=== PATIENT | female | born 1950 | race Caucasian/White ===

== ENCOUNTER 2021-03-27 05:03 | Day surgery (SDC) | payer MEDICARE, OTHER, SELFPAY ==
[2021-03-27] VITALS (20 sets, daily range): BP systolic 131–207; BP diastolic 46–91; PULSE 69–92; RESP 15–19; TEMP 36.4–37.8; O2SAT 91–98; BMI 21.7
--- NOTE | ~2021-03-27 | FL_ITS ---
EXAMINATION: XR FLUOROSCOPY WITH IMAGES CLINICAL INFORMATION: Left kidney stone COMPARISON: CT 03/27/2020 TECHNIQUE: Fluoroscopy performed by Dr. Vaughn Linton. Fluoroscopy time: 169.3 seconds Images: 7 FINDINGS: Cysts noted with injection of contrast into the left ureter and collecting system. There is a ureteral stent placed. FL/FL guidance in OR IMPRESSION: Fluoroscopic guidance for left-sided pyelogram with ureteral stent placement. Please refer to procedural report for further information.
--- NOTE | ~2021-03-27 | CT_ITS ---
EXAMINATION: CT ABDOMEN AND PELVIS WITHOUT CONTRAST CLINICAL INFORMATION: Left flank pain COMPARISON: None TECHNIQUE: Multidetector volumetric imaging was performed from the superior aspect of the liver through the pubic symphysis. Sagittal and coronal reformatted images were obtained on the technologist's workstation. This CT examination was performed using dose optimization techniques as appropriate, variously including the following: *Automated exposure control *Adjustment of mA and/or kV according to patient size (this includes techniques or standardized protocols for targeted exams where dose is matched to indication/reason for exam; i.e. extremities or head) *Use of iterative reconstruction technique DLP: 471 mGy-cm FINDINGS: LUNG BASES: The visualized lung bases demonstrate dependent atelectasis. LIVER, GALLBLADDER, AND BILIARY TREE: The liver is normal in size, shape, and attenuation. There are 2 mildly hypoattenuating right hepatic lobe lesions measuring up to 1.3 cm, not cystic by CT criteria. No biliary ductal dilatation is present. The gallbladder is unremarkable with no evidence of radiopaque gallstones, gallbladder wall thickening, or obvious pericholecystic inflammatory changes. PANCREAS: Unremarkable. SPLEEN: Unremarkable. ADRENAL GLANDS: Unremarkable. KIDNEYS AND URETERS: There is a 4 mm calculus in the proximal left ureter with moderate hydronephrosis. There is prominent left-sided perinephric stranding and fluid. A few additional scattered tiny left renal calculi are noted. No significant right-sided hydronephrosis or obstructing calculus. BLADDER: Unremarkable. GASTROINTESTINAL TRACT: The small and large bowel are unremarkable. The appendix is unremarkable. No free air is seen. ABDOMINAL WALL: No significant hernia is appreciated. LYMPH NODES: No lymphadenopathy is seen, though assessment is limited in the absence of intravenous contrast. VASCULAR: There is atherosclerotic calcification along the aorta and iliac arteries. PELVIC VISCERA: Unremarkable. OSSEOUS STRUCTURES: Unremarkable. CT/CT abdomen pelvis wo con IMPRESSION: 1. Proximal left ureteral calculus measuring 4 mm with moderate hydronephrosis. Prominent left-sided perinephric stranding and fluid. 2. Few tiny left renal calculi. 3. Indeterminate right hepatic lobe lesions measuring up to 1.3 cm which would be better further assessed with dynamic liver MRI.
--- NOTE | 2021-03-27 04:46 | ECG_ITS ---
Test Reason : cp Blood Pressure : / mmHG Vent. Rate : 082 BPM Atrial Rate : 082 BPM P-R Int : 234 ms QRS Dur : 086 ms QT Int : 396 ms P-R-T Axes : 083 072 086 degrees QTc Int : 462 ms Sinus rhythm with 1st degree A-V block Otherwise normal ECG No previous ECGs available Referred By: Elaine Dawson Electronically Signed By:JOVANI BAEZA MD
--- NOTE | 2021-03-27 04:47 | ED_ITS ---
HPI - Abdominal Pain General Chief Complaint: Abdominal Pain Stated Complaint: FLANK/BACK PAIN Time Seen by Provider: 03/27/21 04:46 Source: patient and EMS Mode of arrival: EMS Limitations: no limitations History of Present Illness MD elicited complaint: abdominal pain and flank pain Pertinent past history: none Onset (ago): hour(s) (3.5) Pain Consistency: constant Location: L flank Severity: severe Quality: stabbing Radiation: LLQ Migration to: no migration Exacerbating factors: nothing Relieving factors: nothing Associated symptoms: nausea and vomiting Treatments prior to arrival: other (EMS gave 50mcg of fentanyl, 15 of Toradol, 4mg zofran) Related Data Home Medications Medication Instructions Recorded Confirmed No Known Home Meds 03/27/21 03/27/21 Allergies Allergy/AdvReac Type Severity Reaction Status Date / Time No Known Allergies Allergy Verified 03/27/21 04:46 Review of Systems Review of Systems Constitutional : No Weight loss, No Fever, No Chills ENT/Mouth : No sore throat, No Rhinorrhea Eyes: No Swelling, No Redness Cardiovascular : No Chest Pain, No SOB, NoEdema Respiratory : No Cough, No Sputum, No Wheezing Gastrointestinal : Positive Nausea, Positive Vomiting, no Diarrhea, positive abdominal Pain, No Hematochezia, No Melena Genitourinary : No Dysuria, No Urinary Frequency, No Hematuria, No Urgency Musculoskeletal : No joint pain, No Myalgias, No Joint Swelling, pos back pain Skin : No Skin Lesions, No rash Neuro : No Weakness, No Numbness, No Dizziness, No Headache Psych : No Anxiety/Panic, No Depression Heme/Lymph: No Bruising, No Lymphadenopathy Endocrine : No Polyuria, No Polydipsia All other systems reviewed and are negative. Physical Exam Vital Signs: Vital Signs: Last Vital Signs Temp 97.8 F 03/27/21 04:46 Pulse 92 03/27/21 04:46 Resp 15 03/27/21 05:00 BP 171/81 H 03/27/21 04:46 Pulse Ox 91 L 03/27/21 04:46 Body Mass Index 21.7 Appearance: Alert. Oriented X3. anxious in pain acute distress. Eyes: Pupils equal, round and reactive to light. ENT: Pharynx mild dry MM Neck: Normal inspection. Neck supple. CVS: Normal heart rate and rhythm. Pulses normal. Respiratory: No respiratory distress. Breath sounds normal. Abdomen: Soft and moderate L flank and LLQ pain no rebound no guarding Skin: Skin warm and dry. pale skin color. Normal skin turgor. Extremities: No lower extremity edema. No calf ttp Neuro: Oriented X 3. No motor deficit. No sensory deficit. Course Course Course Narrative: signed out to Dr. Prakash pending workup MDM - Abdominal Pain MDM Narrative Medical decision making narrative: 70 yo female who denies any medical problems or surgeries comes in with c/o abrupt onset L flank pain n/v at this time will need labs, EKG, IVF, IV morphine for pain, UA and CT scan for renal colic Differential Diagnosis Differential diagnosis: Likely abdominal pain, calculus of kidney, constipation, renal colic and small bowel obstruction; Unlikely aortic dissection, mesenteric ischemia or ovarian cyst Lab Data Result diagrams: 03/27/21 05:20 03/27/21 05:50 Labs: Lab Results 03/27/21 03/27/21 03/27/21 Range/Units 05:20 05:20 05:20 WBC 7.4 (4.8-10.8) X10*3/uL RBC 3.83 L (4.20-5.50) X10*6/uL Hgb 11.9 L (12.0-16.0) g/dl Hct 35.4 L (37-47) % MCV 92.4 (80-98) fL MCH 31.1 (27.0-33.0) pg MCHC 33.6 (31.0-35.0) g/dl RDW 13.1 (11.0-16.0) % Plt Count 207 (160-400) X10*3/uL MPV 10.5 (9.4-12.3) fL Immature Gran % (Auto) 0.4 (0.0-0.4) % Neut % (Auto) 79.5 H (45-73) % Lymph % (Auto) 13.8 L (20-40) % [place] % (Auto) 4.9 (2-11) % Eos % (Auto) 1.1 (0-4) % Baso % (Auto) 0.3 (0-2) % Lymph # (Auto) 1.0 L (1.2-4.9) X10*3/uL [place] # (Auto) 0.4 (0.1-1.2) X10*3/uL Eos # (Auto) 0.1 (0.0-0.4) X10*3/uL Baso # (Auto) 0.0 (0.0-0.2) X10*3/uL Abs Immat Gran (auto) 0.03 (0.00-0.03) X10*3/uL Absolute Neuts (auto) 5.9 (2.0-8.3) X10*3/uL Absolute Nucleated RBC 0.000 (0.0-0.012) X10*3/uL Nucleated RBC % (auto) 0.0 (0.0-0.2) /100WBC Sodium (135-145) mmol/L Potassium (3.3-5.1) mmol/L Chloride (96-108) mmol/L Carbon Dioxide (22-29) mmol/L Anion Gap (12-20) BUN (9-16) mg/dL Creatinine (0.5-1.4) mg/dL Estim Creat Clear Calc Estimated GFR Random Glucose (60-115) mg/dL Calcium (8.4-10.2) mg/dL Magnesium (1.6-2.6) mg/dL Total Bilirubin (0.0-1.0) mg/dL Direct Bilirubin (0.0-0.5) mg/dL AST (5-31) U/L ALT (0-31) U/L Alkaline Phosphatase (39-117) U/L Troponin I High Sens < 3.5 (<3.5-17.0) ng/L Total Protein (6.5-8.0) g/dL Albumin (3.5-5.0) g/dL Lipase (8-78) U/L Urine Color Urine Appearance Urine pH (5.0-8.0) Ur Specific [place] (1.005-1.025) Urine Protein (NEG-TRACE) MG/DL Urine Glucose (UA) (NEG) MG/DL Urine Ketones (NEG) MG/DL Urine Blood (NEG) Urine Nitrite (NEG) Ur Leukocyte Esterase (NEG) Urine RBC (0) /HPF Urine WBC (0-4) /HPF Ur Squamous Epith Cells /LPF Urine Bacteria /LPF Urine Mucus /LPF COVID-19 ([facility]) Negative (Negative) COVID-19 Clin Com See Note 03/27/21 03/27/21 Range/Units 05:50 05:50 WBC (4.8-10.8) X10*3/uL RBC (4.20-5.50) X10*6/uL Hgb (12.0-16.0) g/dl Hct (37-47) % MCV (80-98) fL MCH (27.0-33.0) pg MCHC (31.0-35.0) g/dl RDW (11.0-16.0) % Plt Count (160-400) X10*3/uL MPV (9.4-12.3) fL Immature Gran % (Auto) (0.0-0.4) % Neut % (Auto) (45-73) % Lymph % (Auto) (20-40) % [place] % (Auto) (2-11) % Eos % (Auto) (0-4) % Baso % (Auto) (0-2) % Lymph # (Auto) (1.2-4.9) X10*3/uL [place] # (Auto) (0.1-1.2) X10*3/uL Eos # (Auto) (0.0-0.4) X10*3/uL Baso # (Auto) (0.0-0.2) X10*3/uL Abs Immat Gran (auto) (0.00-0.03) X10*3/uL Absolute Neuts (auto) (2.0-8.3) X10*3/uL Absolute Nucleated RBC (0.0-0.012) X10*3/uL Nucleated RBC % (auto) (0.0-0.2) /100WBC Sodium 138 (135-145) mmol/L Potassium 4.0 (3.3-5.1) mmol/L Chloride 105 (96-108) mmol/L Carbon Dioxide 26 (22-29) mmol/L Anion Gap 11 L (12-20) BUN 14 (9-16) mg/dL Creatinine 0.72 (0.5-1.4) mg/dL Estim Creat Clear Calc 68.0 Estimated GFR > 60 Random Glucose 109 (60-115) mg/dL Calcium 8.5 (8.4-10.2) mg/dL Magnesium 2.0 (1.6-2.6) mg/dL Total Bilirubin 0.4 (0.0-1.0) mg/dL Direct Bilirubin < 0.2 (0.0-0.5) mg/dL AST 18 (5-31) U/L ALT 13 (0-31) U/L Alkaline Phosphatase 81 (39-117) U/L Troponin I High Sens (<3.5-17.0) ng/L Total Protein 7.0 (6.5-8.0) g/dL Albumin 4.2 (3.5-5.0) g/dL Lipase 58 (8-78) U/L Urine Color STRAW Urine Appearance CLEAR Urine pH 7.0 (5.0-8.0) Ur Specific [place] 1.015 (1.005-1.025) Urine Protein NEG (NEG-TRACE) MG/DL Urine Glucose (UA) NEG (NEG) MG/DL Urine Ketones NEG (NEG) MG/DL Urine Blood 3+ H (NEG) Urine Nitrite NEG (NEG) Ur Leukocyte Esterase 1+ H (NEG) Urine RBC 50-75 H (0) /HPF Urine WBC 0-2 (0-4) /HPF Ur Squamous Epith Cells 2+ /LPF Urine Bacteria NONE /LPF Urine Mucus TRACE /LPF COVID-19 ([facility]) (Negative) COVID-19 Clin Com ECG Data Attestation: I personally reviewed and interpreted this ECG as follows: ECG interpretation date: 03/27/21 ECG interpretation time: 05:20 Interpretation: Rate: 82 Rhythm: NSR with 1st degree AVB [place]: normal Normal P waves. 1st degree AVB Normal QRS complex. ST T wave : normal no SALLIE qTC: normal prior studies: no acute ischemia The study has been interpreted contemporaneously by me. . Discharge Plan Discharge Clinical Impression: Acute left flank pain Vomiting Qualifiers: Vomiting type: unspecified Vomiting Intractability: non-intractable Nausea presence: with nausea Qualified Code(s): R11.2 - Nausea with vomiting, unspecified Prescriptions: No Action No Known Home Meds RF: 0 PMFSH Past Medical History Attestation statement: The following information was validated with the patient. Medical History No known health problems Social History Social History (Updated 03/27/21 @ 04:51 by Elaine Dawson DO) Alcohol intake: never Patient Tobacco Use Status: Never used Tobacco Use of substances other than those prescribed or required for medical reasons: No Advance Directives: No Advance Directives Information Provided: No
[2021-03-27] MEDS: ondansetron HCL 4 MG/2 ML VIAL IVPUSH ×2 (05:00→18:33)
[2021-03-27] MEDS: Morphine Sulfate 4 MG/ML CARTRIDGE IVPUSH (05:00)
[2021-03-27 05:25] LABS: MANUAL DIFF FLAG NO
[2021-03-27 05:26] LABS: Basophils Percent Auto 0.3 % (0-2); Eosinophils Absolute Auto 0.1 X10*3/uL (0.0-0.4); Eosinophils Percent Auto 1.1 % (0-4); Hematocrit 35.4 % (37-47); Hemoglobin 11.9 g/dl (12.0-16.0); Imm Gran Abs Auto 0.03 X10*3/uL (0.00-0.03); Imm Gran Pct Auto 0.4 % (0.0-0.4); Lymphocytes Percent Auto 13.8 % (20-40); Mean Corpuscular HGB Conc 33.6 g/dl (31.0-35.0); Mean Corpuscular Hemoglobin 31.1 pg (27.0-33.0); Mean Corpuscular Volume 92.4 fL (80-98); Mean Platelet Volume 10.5 fL (9.4-12.3); Monocytes Absolute Auto 0.4 X10*3/uL (0.1-1.2); Monocytes Percent Auto 4.9 % (2-11); Neutrophils Absolute Auto 5.9 X10*3/uL (2.0-8.3); Neutrophils Percent Auto 79.5 % (45-73); Platelet Count 207 X10*3/uL (160-400); Red Blood Count 3.83 X10*6/uL (4.20-5.50); Red Cell Distribution Width 13.1 % (11.0-16.0); White Blood Count 7.4 X10*3/uL (4.8-10.8)
[2021-03-27] MEDS: 0.9 % Sodium Chloride 1,000 ML 999 ML IVCONT ×2 (05:28→07:51)
[2021-03-27 05:39] LABS: COVID-19 Test Negative (Negative); IDNOW Serial# 9DD0AD1C
[2021-03-27 05:45] LABS: Troponin-I High Sensitivity < 3.5 ng/L (<3.5-17.0)
[2021-03-27 05:56] LABS: Appearance Urine CLEAR; Color Urine STRAW; Glucose Urine UA NEG (NEG); Leukocyte Esterase Urine 1+ (NEG); Nitrite Urine NEG (NEG); Specific Gravity - Urine 1.015 (1.005-1.025); UACC Culture Trigger YES; Urine Blood 3+ (NEG); Urine Ketones NEG (NEG); Urine Protein NEG (NEG-TRACE)
[2021-03-27 06:01] LABS: Mucus Urine TRACE /LPF; RBC Urine 50-75 /HPF (0); Squamous Epithelial Cell Urine 2+ /LPF; WBC Urine 0-2 /HPF (0-4)
[2021-03-27 06:19] LABS: Alanine Aminotransferase 13 U/L (0-31); Albumin Level 4.2 g/dL (3.5-5.0); Alkaline Phosphatase 81 U/L (39-117); Anion Gap 11 (12-20); Aspartate Amino Transferase 18 U/L (5-31); Bilirubin Direct < 0.2 mg/dL (0.0-0.5); Bilirubin Total 0.4 mg/dL (0.0-1.0); Blood Urea Nitrogen 14 mg/dL (9-16); Calcium 8.5 mg/dL (8.4-10.2); Carbon Dioxide 26 mmol/L (22-29); Chloride 105 mmol/L (96-108); Estimated Glomerular Filt Rate > 60; Glucose Random 109 mg/dL (60-115); Lipase 58 U/L (8-78); Sodium 138 mmol/L (135-145)
--- NOTE | 2021-03-27 13:23 | PC.NURSE ---
report given to Tierney in the short stay unit. Pt to have surgery after 0.
--- NOTE | 2021-03-27 13:24 | P.CNUR_ITS ---
History of Present Illness Consult details Consult date: 03/27/21 Narrative: Vicki is pleasant female. No prior history of kidney stones. Left flank pain last night that became intolerable Present to ER with nausea and inability to tolerate oral medications Pain has improved with parenterally narcotics Imaging shows proximal 4 mm renal stone with forniceal rupture Discussed findings with Vicki Recommendation for ureteroscopy, laser lithotripsy, stent placement Review of Systems Constitutional: Constitutional: Denies chills and Denies fever(s) Cardiovascular: Cardiovascular: Reports no additional cardiovascular complaints and Denies syncope Respiratory: Respiratory: Denies cough Gastrointestinal: Gastrointestinal: Denies abdominal pain and Denies heartburn Genitourinary: Genitourinary: Reports as per HPI and Denies change in libido Neurologic: Denies syncope Psychiatric: Psychiatric: Denies change in libido Endocrine: Endocrine: Denies change in libido [facility] Past Medical History Medical History No known health problems Social History Social History (Updated 03/27/21 @ 04:51 by Elaine Dawson DO) Alcohol intake: never Patient Tobacco Use Status: Never used Tobacco Use of substances other than those prescribed or required for medical reasons: No Advance Directives: No Advance Directives Information Provided: No Meds Allergies Allergy/AdvReac Type Severity Reaction Status Date / Time No Known Allergies Allergy Verified 03/27/21 04:46 Home Medications Medication Instructions Recorded Confirmed Last Taken Type No Known Home Meds 03/27/21 03/27/21 Unknown History Physical Exam Vital Signs: Vital Signs: Last Vital Signs Temp 98.4 F 03/27/21 10:03 Pulse 76 03/27/21 11:32 Resp 18 03/27/21 11:32 BP 131/66 03/27/21 11:32 Pulse Ox 98 03/27/21 11:32 Body Mass Index 21.7 Const: General: cooperative, healthy appearing, comfortable and no acute distress Orientation/consciousness: patient oriented x3 HENMT: Face and sinus: Yes normal facial exam Mouth: moist mucous membranes Neck: Neck: Yes normal visual inspection, Yes full ROM and Yes trachea midline Chest: Chest palpation & inspection: normal inspection of the chest Resp: Effort & Inspection: normal respiratory effort, able to speak in complete sentences and no respiratory distress GI: Inspection: Yes normal to inspection Back/Spine/Pelvis: Cervical Spine: normal cervical lordosis Thoracic/Lumbar Spine: thoracic and lumbar spine normal to inspection Skin: General skin exam: no rashes or lesions noted Neuro: General: patient oriented x3, gait normal, tone normal and moves all extremities Extrem: General: Yes normal to inspection and Yes capillary refill normal Results Labs Result diagrams: 03/27/21 05:20 03/27/21 05:50 Labs: Abnormal lab results 03/27/21 03/27/21 03/27/21 Range/Units 05:20 05:50 05:50 RBC 3.83 L (4.20-5.50) X10*6/uL Hgb 11.9 L (12.0-16.0) g/dl Hct 35.4 L (37-47) % Neut % (Auto) 79.5 H (45-73) % Lymph % (Auto) 13.8 L (20-40) % Lymph # (Auto) 1.0 L (1.2-4.9) X10*3/uL Anion Gap 11 L (12-20) Urine Blood 3+ H (NEG) Ur Leukocyte Esterase 1+ H (NEG) Urine RBC 50-75 H (0) /HPF Short CBC 03/27/21 Range/Units 05:20 WBC 7.4 (4.8-10.8) X10*3/uL Hgb 11.9 L (12.0-16.0) g/dl Hct 35.4 L (37-47) % Plt Count 207 (160-400) X10*3/uL BMP 03/27/21 05:50 Sodium 138 Potassium 4.0 Chloride 105 Carbon Dioxide 26 BUN 14 Creatinine 0.72 Calcium 8.5 Liver Function 03/27/21 Range/Units 05:50 Total Bilirubin 0.4 (0.0-1.0) mg/dL Direct Bilirubin < 0.2 (0.0-0.5) mg/dL AST 18 (5-31) U/L ALT 13 (0-31) U/L Alkaline Phosphatase 81 (39-117) U/L Albumin 4.2 (3.5-5.0) g/dL Urine 03/27/21 Range/Units 05:50 Urine Color STRAW Urine Appearance CLEAR Urine pH 7.0 (5.0-8.0) Ur Specific [place] 1.015 (1.005-1.025) Urine Protein NEG (NEG-TRACE) MG/DL Urine Glucose (UA) NEG (NEG) MG/DL All other labs normal. Assessment and Plan (1) Calculus of kidney: Status: Acute Ureteroscopy We discussed the nature of the decision and reasonable alternatives for performing the above surgery. Interventions include chemical dissolution, ESWL, ureteroscopy with laser lithotripsy and stent placement, PCNL. Options such as medical therapy were discussed. The relative uncertainties and benefits related to each alternate procedure were adequately discussed. General surgical risks including, but not limited to, pain, bleeding, infection, myocardial infarction, pulmonary embolus, deep vein thrombosis and cerebrovascular accident which may result in further hospitalization were discussed. Full disclosure of the procedure as well as all major risks, benefits and complications were discussed including but not limited to damage to the urethra, bladder and kidney infection, damage to the ureter, stent migration or malposition, scarring to the renal pelvis, remnant stone fragments, subsequent stone passage with need for secondary procedures. The overall secondary procedure rate is approximately 10-15%. The success rate of the procedure was discussed. Success of the procedure in the short-term does not necessarily guarantee that long-term success will be maintained. Suitable follow up will need to be maintained. The patient showed understanding of discussion and wishes to proceed with - cystoscopy, retrograde, ureteroscopy, possible lithotripsy/stone basketing and stent on the left side Procedures Date of Service Date of Service: 03/27/21
[2021-03-27] MEDS: levoFLOXacin 500 MG TABLET PO (13:59)
--- NOTE | 2021-03-27 16:47 | HO.ANESPROP2 ---
[facility] Active Problems Active Problems: All Active Problems (Updated 03/27/21 @ 08:19 by Leroy Prakash MD) Vomiting (Acute) Acute left flank pain (Acute) Calculus of kidney (Acute) Past Medical History Medical History Asthma No known health problems Sleep apnea with use of continuous positive airway pressure (CPAP) Surgical History Surgical History History of colonoscopy History of surgery on arm History of tonsillectomy History of Problems with Anesthesia: No Social History Social History Are you a primary floor care specialist to a significant other at home: No Do you presently have visiting nurse or other home services: No Alcohol intake: never Patient Tobacco Use Status: Never used Tobacco Use of substances other than those prescribed or required for medical reasons: No Have you been hit, kicked, punched, or otherwise hurt by someone within the past year? If so, by whom?: No Are you DNR?: No Advance Directives: No Advance Directives Information Provided: No Advance Directives on File: No Recently lost weight without trying: No Eating poorly because of decreased appetite: No Nutrition Risks: No Nutritional Risk Patient : No : No Poor oral hygiene: No Meds Allergies Allergy/AdvReac Type Severity Reaction Status Date / Time No Known Allergies Allergy Verified 03/27/21 04:46 Home Medications Medication Instructions Recorded Confirmed Last Taken Type No Known Home Meds 03/27/21 03/27/21 Unknown History Exam Exam Date and Time: March 27, 2021 1647 Height,Weight and Vital Signs: Height 5 ft 6 in Weight 61.235 kg Last Vital Signs Temp 98.9 F 03/27/21 15:45 Pulse 75 03/27/21 15:45 Resp 16 03/27/21 15:45 BP 154/68 H 03/27/21 15:45 Pulse Ox 97 03/27/21 15:45 Pertinent Lab Results Pertinent Lab Results: Laboratory Tests 03/27/21 03/27/21 03/27/21 05:20 05:20 05:20 WBC 7.4 RBC 3.83 L Hgb 11.9 L Hct 35.4 L MCV 92.4 MCH 31.1 MCHC 33.6 RDW 13.1 Plt Count 207 MPV 10.5 Immature Gran % (Auto) 0.4 Neut % (Auto) 79.5 H Lymph % (Auto) 13.8 L [place] % (Auto) 4.9 Eos % (Auto) 1.1 Baso % (Auto) 0.3 Lymph # (Auto) 1.0 L [place] # (Auto) 0.4 Eos # (Auto) 0.1 Baso # (Auto) 0.0 Abs Immat Gran (auto) 0.03 Absolute Neuts (auto) 5.9 Absolute Nucleated RBC 0.000 Nucleated RBC % (auto) 0.0 Sodium Potassium Chloride Carbon Dioxide Anion Gap BUN Creatinine Estim Creat Clear Calc Estimated GFR Random Glucose Calcium Magnesium Total Bilirubin Direct Bilirubin AST ALT Alkaline Phosphatase Troponin I High Sens < 3.5 Total Protein Albumin Lipase Urine Color Urine Appearance Urine pH Ur Specific [place] Urine Protein Urine Glucose (UA) Urine Ketones Urine Blood Urine Nitrite Ur Leukocyte Esterase Urine RBC Urine WBC Ur Squamous Epith Cells Urine Bacteria Urine Mucus COVID-19 ([facility]) Negative COVID-19 Clin Com See Note 03/27/21 03/27/21 05:50 05:50 WBC RBC Hgb Hct MCV MCH MCHC RDW Plt Count MPV Immature Gran % (Auto) Neut % (Auto) Lymph % (Auto) [place] % (Auto) Eos % (Auto) Baso % (Auto) Lymph # (Auto) [place] # (Auto) Eos # (Auto) Baso # (Auto) Abs Immat Gran (auto) Absolute Neuts (auto) Absolute Nucleated RBC Nucleated RBC % (auto) Sodium 138 Potassium 4.0 Chloride 105 Carbon Dioxide 26 Anion Gap 11 L BUN 14 Creatinine 0.72 Estim Creat Clear Calc 68.0 Estimated GFR > 60 Random Glucose 109 Calcium 8.5 Magnesium 2.0 Total Bilirubin 0.4 Direct Bilirubin < 0.2 AST 18 ALT 13 Alkaline Phosphatase 81 Troponin I High Sens Total Protein 7.0 Albumin 4.2 Lipase 58 Urine Color STRAW Urine Appearance CLEAR Urine pH 7.0 Ur Specific [place] 1.015 Urine Protein NEG Urine Glucose (UA) NEG Urine Ketones NEG Urine Blood 3+ H Urine Nitrite NEG Ur Leukocyte Esterase 1+ H Urine RBC 50-75 H Urine WBC 0-2 Ur Squamous Epith Cells 2+ Urine Bacteria NONE Urine Mucus TRACE COVID-19 ([facility]) COVID-19 Clin Com Airway Mallampati Class: II TM Dist: >3cm Neck ROM: Full Loose/Missing/Broken Teeth: No Heart: RRR Lungs: CTA Assessment and Plan Assessment Anesthesia Assessment: Anesthesia Plan Discussed and Chart Reviewed Final Anesthetic Review History of Problems with Anesthesia: No NPO: Yes ASA Class: II Final Preanesthetic Review: Meds/Allgs Chart Reviewed and Consent Obtained/Reviewed Patient Risk: Low Procedure Risk: Low Anesthetic Plan Anesthetic Plan: GA Disposition: Standard PACU
--- NOTE | 2021-03-27 16:57 | PC.NURSE ---
pt picked up by pacu, brought to surgery . will be d/c from pacu
--- NOTE | 2021-03-27 17:12 | HO.ANESPROP2 ---
[facility] Active Problems Active Problems: All Active Problems (Updated 03/27/21 @ 17:01 by Kaylah Tobias RN) Vomiting (Acute) Acute left flank pain (Acute) Calculus of kidney (Acute) Past Medical History Medical History Asthma No known health problems Sleep apnea with use of continuous positive airway pressure (CPAP) Surgical History Surgical History History of colonoscopy History of surgery on arm History of tonsillectomy History of Problems with Anesthesia: No Social History Social History Are you a primary home care liaison to a significant other at home: No Do you presently have visiting nurse or other home services: No Alcohol intake: never Patient Tobacco Use Status: Never used Tobacco Use of substances other than those prescribed or required for medical reasons: No Have you been hit, kicked, punched, or otherwise hurt by someone within the past year? If so, by whom?: No Are you DNR?: No Advance Directives: No Advance Directives Information Provided: No Advance Directives on File: No Recently lost weight without trying: No Eating poorly because of decreased appetite: No Nutrition Risks: No Nutritional Risk Patient : No : No Poor oral hygiene: No Meds Allergies Allergy/AdvReac Type Severity Reaction Status Date / Time No Known Allergies Allergy Verified 03/27/21 04:46 Home Medications Medication Instructions Recorded Confirmed Last Taken Type No Known Home Meds 03/27/21 03/27/21 Unknown History Exam Exam Date and Time: March 27, [id number] Height,Weight and Vital Signs: Height 5 ft 6 in Weight 61.235 kg Last Vital Signs Temp 100.0 F 03/27/21 17:04 Pulse 75 03/27/21 17:04 Resp 16 03/27/21 17:04 BP 171/77 H 03/27/21 17:04 Pulse Ox 97 03/27/21 17:04 Pertinent Lab Results Pertinent Lab Results: Laboratory Tests 03/27/21 03/27/21 03/27/21 05:20 05:20 05:20 WBC 7.4 RBC 3.83 L Hgb 11.9 L Hct 35.4 L MCV 92.4 MCH 31.1 MCHC 33.6 RDW 13.1 Plt Count 207 MPV 10.5 Immature Gran % (Auto) 0.4 Neut % (Auto) 79.5 H Lymph % (Auto) 13.8 L [place] % (Auto) 4.9 Eos % (Auto) 1.1 Baso % (Auto) 0.3 Lymph # (Auto) 1.0 L [place] # (Auto) 0.4 Eos # (Auto) 0.1 Baso # (Auto) 0.0 Abs Immat Gran (auto) 0.03 Absolute Neuts (auto) 5.9 Absolute Nucleated RBC 0.000 Nucleated RBC % (auto) 0.0 Sodium Potassium Chloride Carbon Dioxide Anion Gap BUN Creatinine Estim Creat Clear Calc Estimated GFR Random Glucose Calcium Magnesium Total Bilirubin Direct Bilirubin AST ALT Alkaline Phosphatase Troponin I High Sens < 3.5 Total Protein Albumin Lipase Urine Color Urine Appearance Urine pH Ur Specific [place] Urine Protein Urine Glucose (UA) Urine Ketones Urine Blood Urine Nitrite Ur Leukocyte Esterase Urine RBC Urine WBC Ur Squamous Epith Cells Urine Bacteria Urine Mucus COVID-19 ([facility]) Negative COVID-19 Clin Com See Note 03/27/21 03/27/21 05:50 05:50 WBC RBC Hgb Hct MCV MCH MCHC RDW Plt Count MPV Immature Gran % (Auto) Neut % (Auto) Lymph % (Auto) [place] % (Auto) Eos % (Auto) Baso % (Auto) Lymph # (Auto) [place] # (Auto) Eos # (Auto) Baso # (Auto) Abs Immat Gran (auto) Absolute Neuts (auto) Absolute Nucleated RBC Nucleated RBC % (auto) Sodium 138 Potassium 4.0 Chloride 105 Carbon Dioxide 26 Anion Gap 11 L BUN 14 Creatinine 0.72 Estim Creat Clear Calc 68.0 Estimated GFR > 60 Random Glucose 109 Calcium 8.5 Magnesium 2.0 Total Bilirubin 0.4 Direct Bilirubin < 0.2 AST 18 ALT 13 Alkaline Phosphatase 81 Troponin I High Sens Total Protein 7.0 Albumin 4.2 Lipase 58 Urine Color STRAW Urine Appearance CLEAR Urine pH 7.0 Ur Specific [place] 1.015 Urine Protein NEG Urine Glucose (UA) NEG Urine Ketones NEG Urine Blood 3+ H Urine Nitrite NEG Ur Leukocyte Esterase 1+ H Urine RBC 50-75 H Urine WBC 0-2 Ur Squamous Epith Cells 2+ Urine Bacteria NONE Urine Mucus TRACE COVID-19 ([facility]) COVID-19 Clin Com Airway Mallampati Class: II TM Dist: >3cm Neck ROM: Full Loose/Missing/Broken Teeth: No Heart: RRR Lungs: CTA Assessment and Plan Assessment Anesthesia Assessment: Anesthesia Plan Discussed Final Anesthetic Review History of Problems with Anesthesia: No NPO: Yes ASA Class: II Final Preanesthetic Review: Meds/Allgs Chart Reviewed, Consent Obtained/Reviewed and Anes Risks/Benef Reviewed Patient Risk: Low Procedure Risk: Low Anesthetic Plan Anesthetic Plan: GA Disposition: Standard PACU
--- NOTE | 2021-03-27 17:19 | MHC.SHP ---
Pre-Procedural Eval Section A Date of Service: 03/27/21 The patient is an INPATIENT: No Changes since office visit: No Cold of Flu in the past 2 weeks, No New Medical Problems, No Changes in Medication and No Patient answered all questions The History & Physical has been completed within 30 days and I have reviewed it.: Yes Section B Chief Complaint: FLANK/BACK PAIN Allergies: Allergies Allergy/AdvReac Type Severity Reaction Status Date / Time No Known Allergies Allergy Verified 03/27/21 04:46 Plan Diagnosis/Plan: Unchanged (left ureteroscopy, laser lithotripsy and stent) I have reviewed the history and physical and performed a pertinent physical examination on my patient. No changes have occurred unless specified.
--- NOTE | 2021-03-27 17:54 | W.PM.OPN ---
Operative Note Operative Note Date of Service: 03/27/21 Narrative: PreOperative Diagnosis: Left proximal ureteric stone Post Operative Diagnosis: Left proximal ureteric stone Procedure: - cystoscopy, left retrograde - left dilatation of ureteric orifice under fluoroscopy - left ureteroscopy - left stent placement Surgeon: Dr Vaughn Linton Anesthesia: General Indications for procedure: 70-year-old female admitted through emergency room with left abdominal pain. Imaging shows left proximal small ureteric stone with stranding around kidney consistent with forniceal rupture. Recommend intervention with ureteroscopy and stent placement Procedure: After informed consent was verified patient was brought to the operating placed in supine position. Anesthesia was administered per protocol. Patient was placed in modified dorsal lithotomy position and prepped and draped in a sterile fashion. Safety pause time-out and side of surgery confirmed. Antibiotics confirmed. Twenty-two Swedish cystoscope inserted per urethra. Bladder examined is normal. Left retrograde examination performed. No filling defects seen. Narrowing at the proximal ureter seen. Sensor guidewire placed. Logan dilator used to dilate ureter. Flexible ureteric scope placed over the wire up to the level of narrowed proximal ureter. Unable to advance all the way into the renal pelvis. Scope was removed. Sensor guidewire was in position. Sky dilator placed. Sensor wire exchanged for a superstiff wire. Sky dilator at advanced into kidney. Logan dilator removed. Digital scope placed over the wire into the renal pelvis. Wire removed. Renal pelvis examined in its entirety. Small stones seen. On the tolerated mid pole. There was some degree of blood clot in the area so the small stone that was pushed back was unable to be found. Decision made to place stent which will allow decompression and stone fragment to pass. Six Swedish by 22 cm stent was placed over the Sensor wire up to the level renal pelvis good coil seen within renal pelvis and good coil seen within the bladder. Bladder was emptied. Patient transferred in stable condition from the operating room to the recovery area. Pathology: None Drains: 6 Swedish by 22 cm stent
[2021-03-27] MEDS: Acetaminophen 325 MG TABLET 650 MG PO (18:23)
[2021-03-27] MEDS: Phenazopyridine HCL 100 MG TABLET PO (18:24)
[2021-03-27] MEDS: Labetalol HCL 100 MG/20 ML VIAL 10 MG IVPUSH ×2 (18:39→19:14)
[2021-03-27] MEDS: Haloperidol Lactate 5 MG/ML VIAL IVPUSH (19:19)
== END 2021-03-27 17:00 | disposition home or self-care (01) ==
LOC: HO.ED 17:57 → HO.SSSA 03-28 06:34 → HO.SSS 03-28 08:36
PROVIDERS: Urology; Visit Provider Emergency Medicine
PROC: (CPT 52351; principal; 2021-03-27 16:30)
DX: N20.1 Calculus of ureter (principal); G47.33 Obstructive sleep apnea (adult) (pediatric); Z20.822 Contact with and (suspected) exposure to COVID-19
CPT/HCPCS: 52351; 52332; 36415; 74176; 80048; 80076; 81001; 83690; 83735; 84484; 85025; 87086; 87635; 93005; C1769; C2617; J2270; J2405; J3010; Q9967

== ENCOUNTER 2021-04-05 08:56 | Outpatient (REF) | payer MEDICARE, OTHER, SELFPAY ==
--- NOTE | ~2021-04-05 | XR_ITS ---
EXAMINATION: XR ABDOMEN KUB CLINICAL INDICATION: Calculus of ureter COMPARISON: 03/27/2021 TECHNIQUE: AP view of the abdomen. FINDINGS: There is a left ureteral stent in place. The proximal left ureteral calculus seen on prior CT is not clearly visualized. Phlebolith in the left pelvis. Normal bowel gas pattern. No dilated loops of bowel. Gas and stool in the colon. The lung bases are clear. XR/XR KUB IMPRESSION: Left ureteral stent. No definite renal or ureteral calculi seen.
== END 2021-04-05 08:57 | disposition home or self-care (01) ==
LOC: HO.XRAY 08:56
PROVIDERS: Visit Provider Urology
DX: Z13.89 Encounter for screening for other disorder (principal)
CPT/HCPCS: 52000; 52310; 74018; 99212; J2250

== ENCOUNTER 2021-04-05 15:41 | Day surgery (SDC) | payer MEDICARE, OTHER, SELFPAY ==
--- NOTE | ~2021-04-05 | FL_ITS ---
EXAMINATION: XR FLUOROSCOPY WITH IMAGES CLINICAL INFORMATION: Migrated ureteric stent on the left. COMPARISON: KUB done on 04/05/2021. TECHNIQUE: Fluoroscopy performed by Dr. Vaughn Linton. Fluoroscopy time: 2.7 seconds. DAP: 0.40 mGycm2 Images: 2 FINDINGS: Spot radiographs of the pelvis initially showed radiopaque stent projecting within the left hemipelvis. Stent was not visualized on subsequent images. FL/FL guidance in OR IMPRESSION: Please refer to the procedural note for further full details.
--- NOTE | 2021-04-05 15:10 | HO.ANESPROP2 ---
[facility] Active Problems Active Problems: All Active Problems (Updated 04/05/21 @ 09:24 by Vaughn Linton MD) Migration of ureteral stent (Acute) Vomiting (Acute) Acute left flank pain (Acute) Calculus of kidney (Acute) Past Medical History Medical History Asthma No known health problems Sleep apnea with use of continuous positive airway pressure (CPAP) Surgical History Surgical History History of colonoscopy History of surgery on arm History of tonsillectomy History of Problems with Anesthesia: No Social History Social History Are you a primary patient care representative to a significant other at home: No Do you presently have visiting nurse or other home services: No Alcohol intake: never Patient Tobacco Use Status: Never used Tobacco Meds Allergies Allergy/AdvReac Type Severity Reaction Status Date / Time No Known Allergies Allergy Verified 04/05/21 09:03 Exam Exam Date and Time: April 05, 2021 1510 Airway Mallampati Class: II TM Dist: >3cm Neck ROM: Full Assessment and Plan Final Anesthetic Review History of Problems with Anesthesia: No
[2021-04-05 15:11] VITALS: BP 153/74; PULSE 84; RESP 16; TEMP 36.8; O2SAT 98; BMI 21.7
[2021-04-05] MEDS: Lactated Ringers 1,000 ML 100 ML IVCONT (16:00)
--- NOTE | 2021-04-05 16:13 | MHC.SHP ---
Pre-Procedural Eval Section A Date of Service: 04/05/21 The patient is an INPATIENT: No Changes since office visit: No Cold of Flu in the past 2 weeks, No New Medical Problems, No Changes in Medication and No Patient answered all questions The History & Physical has been completed within 30 days and I have reviewed it.: Yes Section B Chief Complaint: displacement of indwelling ureteral stent Allergies: Allergies Allergy/AdvReac Type Severity Reaction Status Date / Time No Known Allergies Allergy Verified 04/05/21 09:03 Plan Diagnosis/Plan: Unchanged (cystoscopy with left ureteroscopy and stent removal) I have reviewed the history and physical and performed a pertinent physical examination on my patient. No changes have occurred unless specified.
[2021-04-05] MEDS: levoFLOXacin/D5W 500 MG/100 ML PIGGYBACK 100 MG IV (16:17)
[2021-04-05 16:50] VITALS: BP 163/88; PULSE 83; RESP 18; TEMP 36.6; O2SAT 98
--- NOTE | 2021-04-05 16:51 | W.PM.OPN ---
Operative Note Operative Note Date of Service: 04/05/21 Narrative: PreOperative Diagnosis: Left retained ureteric stent Post Operative Diagnosis: left migrated stent Procedure: - cystoscopy, - left ureteroscopy, stent basketing Surgeon: Dr Vaughn Linton Anesthesia: General Indications for procedure: Migrated left stent Procedure: After informed consent was verified patient was brought to the operating placed in supine position. Anesthesia was administered per protocol. Patient was placed in modified dorsal lithotomy position and prepped and draped in a sterile fashion. Safety pause time-out and side of surgery confirmed. Antibiotics confirmed. Cystoscopy Left semirigid ureteroscopy Stent encounted and ensnared in distal ureter Stent withdrawn bladder emptied Patiet transferred to recovery Pathology: left stent Drains:
[2021-04-05] MEDS: ondansetron HCL 4 MG/2 ML VIAL IVPUSH (16:58)
[2021-04-05 17:05] VITALS: BP 157/85; PULSE 88; RESP 18; O2SAT 98
[2021-04-05 17:20] VITALS: BP 161/76; PULSE 80; RESP 16; O2SAT 99
[2021-04-05 17:35] VITALS: BP 176/78; PULSE 76; RESP 17; O2SAT 98
[2021-04-05 17:50] VITALS: BP 168/74; PULSE 78; RESP 16; TEMP 36.8; O2SAT 97
== END 2021-04-05 18:15 | disposition home or self-care (01) ==
PROVIDERS: Visit Provider Urology
PROC: 0TJB8ZZ Inspection of Bladder, Via Natural or Artificial Opening Endoscopic (ICD-10-PCS; CPT 52000; principal; 2021-04-05 16:00)
DX: T83.122A Displacement of indwelling ureteral stent, initial encounter (principal); Z87.442 Personal history of urinary calculi; Y83.8 Other surgical procedures as the cause of abnormal reaction of the patient, or of later complication, without mention of misadventure at the time of the procedure; Y92.9 Unspecified place or not applicable; J45.909 Unspecified asthma, uncomplicated; G47.33 Obstructive sleep apnea (adult) (pediatric); Z99.89 Dependence on other enabling machines and devices
CPT/HCPCS: 52310; 52000; 74018; 99212; J0131; J1956; J2250; J2405; Q9967

== ENCOUNTER 2021-05-23 12:59 | Outpatient (REF) | payer MEDICARE, OTHER, SELFPAY ==
--- NOTE | ~2021-05-23 | US_ITS ---
EXAMINATION: US RETROPERITONEAL LIMITED (RENAL ONLY) CLINICAL INFORMATION: Calculus of kidney. COMPARISON: KUB 04/05/2021. CT abdomen and pelvis 03/27/2021. TECHNIQUE: Real-time imaging of the kidneys. FINDINGS: RIGHT KIDNEY: 12.2 x 4.5 x 5.5 cm (SAG x AP x TRV). The kidney is normal in size, contour, and echogenicity. Renal cortical thickness is normal. No calculi or focal parenchymal lesions. No hydronephrosis. LEFT KIDNEY: 10.5 x 5.7 x 5.7 cm (SAG x AP x TRV). The kidney is normal in size, contour, and echogenicity. Renal cortical thickness is normal. No focal parenchymal lesions or hydronephrosis. Small calyceal stones measuring up to 0.3 cm seen in the mid and lower pole. US/US renal BI IMPRESSION: Small calyceal stones measuring up to 0.3 cm are present in the mid and lower pole of the left kidney. Otherwise, kidneys are unremarkable. No hydronephrosis.
== END 2021-05-23 13:00 | disposition home or self-care (01) ==
LOC: HO.HMGCX 12:59
PROVIDERS: Visit Provider Urology
DX: N20.0 Calculus of kidney (principal)
CPT/HCPCS: 76775

== ENCOUNTER → 2021-06-11 15:11 | Outpatient (BNVA) | payer MEDICARE, OTHER, SELFPAY | PROVIDERS: Visit Provider Urology | DX: N20.0 Calculus of kidney (principal) | CPT/HCPCS: Q3014 ==

== ENCOUNTER 2021-12-04 13:57 | Outpatient (REF) | payer MEDICARE, OTHER, SELFPAY ==
--- NOTE | ~2021-12-04 | US_ITS ---
EXAMINATION: US RETROPERITONEAL LIMITED (RENAL ONLY) CLINICAL INFORMATION: Calculus of kidney. COMPARISON: Renal ultrasound 05/23/2021. X-ray abdomen KUB 04/05/2021. CT abdomen and pelvis 03/27/2021. TECHNIQUE: Real-time imaging of the kidneys. FINDINGS: RIGHT KIDNEY: 11.4 x 4.1 x 6.5 cm (SAG x AP x TRV). The kidney is normal in size, contour, and echogenicity. Renal cortical thickness is normal. No calculi or focal parenchymal lesions. No hydronephrosis. LEFT KIDNEY: 10.2 x 4.8 x 6.2 cm (SAG x AP x TRV). The kidney is normal in size, contour, and echogenicity. Renal cortical thickness is normal. No focal parenchymal lesions or hydronephrosis. Lower pole calculus measures 3 x 4 x 3 mm. Midpole calculus measures 3 x 2 x 4 mm. US/US renal BI IMPRESSION: Nonobstructing left renal calculi.
== END 2021-12-04 13:58 | disposition home or self-care (01) ==
LOC: HO.HMGCX 13:57
PROVIDERS: Visit Provider Urology
DX: N20.0 Calculus of kidney (principal)
CPT/HCPCS: 76775

== ENCOUNTER → 2021-12-25 08:29 | Outpatient (BNVA) | payer MEDICARE, OTHER, SELFPAY | PROVIDERS: Visit Provider Urology | DX: N20.0 Calculus of kidney (principal) | CPT/HCPCS: 99212 ==

== ENCOUNTER 2022-03-26 13:00 | Outpatient (RCR) | payer MEDICARE, OTHER, SELFPAY | END 2022-04-29 08:00 | disposition home or self-care (01) | LOC: HO.PT 13:00 | PROVIDERS: PCP Family Medicine; Visit Provider Obstetrics & Gynecology | DX: N39.46 Mixed incontinence (principal) | CPT/HCPCS: 97112; 97161 ==

== ENCOUNTER 2022-07-07 13:08 | Outpatient (REF) | payer MEDICARE, OTHER, SELFPAY ==
--- NOTE | ~2022-07-07 | XR_ITS ---
EXAMINATION: XR ABDOMEN KUB CLINICAL INDICATION: Renal calculus. COMPARISON: Renal ultrasound dated 12/04/2021; KUB dated 04/05/2021; CT abdomen and pelvis dated 03/27/2021. TECHNIQUE: AP view of the abdomen and pelvis. FINDINGS: The bowel gas pattern is normal with no evidence of ileus or obstruction. No unusual soft tissue calcifications are noted. There are persistent left upper quadrant mesenteric atherosclerotic calcifications. There are stable pelvic phleboliths. A pessary device is noted. The bones are unremarkable. XR/XR KUB IMPRESSION: Unremarkable examination. No definite urinary calculus is appreciated.
== END 2022-07-07 13:09 | disposition home or self-care (01) ==
LOC: HO.HMGCX 13:08
PROVIDERS: PCP Internal Medicine; Visit Provider Urology
DX: N20.0 Calculus of kidney (principal)
CPT/HCPCS: 74018

== ENCOUNTER → 2022-07-22 13:26 | Outpatient (BNVA) | payer MEDICARE, OTHER, SELFPAY | PROVIDERS: PCP Internal Medicine; Visit Provider Urology | DX: N20.0 Calculus of kidney (principal) | CPT/HCPCS: 99212 ==

== ENCOUNTER 2023-07-16 14:59 | Outpatient (REF) | payer MEDICARE, OTHER, SELFPAY ==
--- NOTE | ~2023-07-16 | US_ITS ---
EXAMINATION: US RETROPERITONEAL LIMITED (RENAL ONLY) CLINICAL INFORMATION: Calculus of kidney. COMPARISON: X-ray KUB 07/07/2022 and 04/05/2021. Renal ultrasound 12/04/2021 and 05/23/2021. CT abdomen and pelvis 03/27/2021. TECHNIQUE: Real-time imaging of the kidneys. FINDINGS: RIGHT KIDNEY: 12.0 x 4.2 x 6.3 cm (SAG x AP x TRV). The kidney is normal in size, contour, and echogenicity. Renal cortical thickness is normal. No calculi or focal parenchymal lesions. No hydronephrosis. LEFT KIDNEY: 10.2 x 4.8 x 5.7 cm (SAG x AP x TRV). The kidney is normal in size, contour, and echogenicity. Renal cortical thickness is normal. No focal parenchymal lesions or hydronephrosis. There is an echogenic stone midpole measuring 0.39 x 0.26 x 0.36 cm and lower pole measuring 0.28 x 0 0.27 x 0.29 cm. No caliectasis seen. US/US renal BI IMPRESSION: Nonobstructive echogenic stones midpole and lower pole left kidney. Unremarkable right kidney
== END 2023-07-16 15:00 | disposition home or self-care (01) ==
LOC: HO.HMGCX 14:59
PROVIDERS: PCP Internal Medicine; Visit Provider Urology
DX: N20.0 Calculus of kidney (principal)
CPT/HCPCS: 76775

== ENCOUNTER 2023-08-14 13:31 | Outpatient (AMB) | payer MEDICARE, OTHER, SELFPAY ==
--- NOTE | 2023-08-14 13:57 | A.OFFVIS_ITS ---
Intake Intake Visit Reasons: 1Y US(SET) Intake Note: Patient presents today for a follow-up U/S Meds- None Allergies to Antibiotic- No Known Allergies Blood Thinner- None Any Commodity Sales Deliverer Required: No Accompanied by: Self / Same As Patient Allergies No Known Allergies Allergy (Verified 08/14/23 14:02) Medication List - Last Reconciled 08/14/23 by Vaughn Linton MD pyridoxine (vitamin B6) 50 mg PO DAILY 90 days HPI HPI Comments History of Present Illness Details Vicki is a pleasant female. She is a patient of Dr. Stringer. She is seen for following urologic conditions. - nephrolithiasis Yearly follow-up Discussed maintaining hydration and lemon therapy Plan for check US in 12 months Recommended vitamin B6 50 mg daily Nephrolithiasis Ureteroscopy with laser lithotripsy required Stone intervention - 03/21 ureteroscopy stone basketing Stone composition - of performed Imaging - 03/21 4 mm proximal left ureteric ston e - 05/21 renal ultrasound no evidence of stones - 11/20 renal ultrasound 3 mm left - 06/23 KUB no visible stone - 07/25 renal ultrasound 3 mm stone left [facility] Medical History Asthma Sleep apnea with use of continuous positive airway pressure (CPAP) No known health problems Surgical History History of surgery on arm History of colonoscopy History of tonsillectomy Social History Are you a primary home health care physician to a significant other at home: No Do you presently have visiting nurse or other home services: No Alcohol intake: never Patient Tobacco Use Status: Never used Tobacco Review of Systems Const Denies chills and Denies fever(s) Card Reports no additional complaints and Denies syncope Resp Denies cough GI Denies abdominal pain and Denies heartburn Reports as per HPI and Denies change in libido Neuro Denies syncope Psych Denies change in libido Endo Denies change in libido Physical Exam Const General: cooperative, healthy appearing, comfortable and no acute distress Orientation/consciousness: patient oriented x3 HEENT Face and sinus: Yes normal facial exam Mouth: moist mucous membranes Neck Neck: Yes normal visual inspection, Yes full ROM and Yes trachea midline Chest Chest palpation & inspection: normal inspection of the chest Resp Effort & Inspection: normal respiratory effort, able to speak in complete sentences and no respiratory distress GI Inspection: Yes normal to inspection Back/Spine/Pelvis Cervical Spine: normal cervical lordosis Thoracic/Lumbar Spine: thoracic and lumbar spine normal to inspection Skin General skin exam: no rashes or lesions noted Neuro General: patient oriented x3, gait normal, tone normal and moves all extremities Extrem General: Yes normal to inspection and Yes capillary refill normal Assessment & Plan Assessment & Plan (1) Acute left flank pain: Code(s): R10.9 - Unspecified abdominal pain (2) Calculus of kidney: Code(s): N20.0 - Calculus of kidney Plan Twelve month follow-up Orders: Orders US renal BI 12 Months N20.0 - Calculus of kidney Medications: New pyridoxine (vitamin B6) 50 mg PO DAILY 90 tabs 3RF 90 days N20.0 - Calculus of kidney Patient Instructions: Imaging studies, laboratory and physical exam results were discussed and reviewed in detail. No major barriers to patient understanding were identified. An opportunity to ask questions regarding the treatment plan was provided. All questions were answered. The patient expressed understanding and agreement with the above treatment plan. The patient is aware they should contact our office by phone for worsening of their current condition or the appearance of new urologic symptoms. Compliance is encouraged with any medications and followup testing that is ordered. It is a privilege to participate in the urologic care of your patient. If you have any questions or concerns regarding treatment for the above conditions, or other urologic issues, please do not hesitate to contact me. The office telephone contact is [phone]. This note is constructed using voice recognition software. While every effort has been made to ensure accuracy field artillery crewmember errors may have been included. Yours sincerely, Dr Vaughn Linton MD, [facility] - Urology Providers of Expert, Compassionate Care for the Genitourinary System Coding Level of Care Code Est Pt Level 4 (73868) Diagnoses Acute left flank pain R10.9 Calculus of kidney N20.0
== END 2023-08-14 14:14 | disposition home or self-care (01) ==
PROVIDERS: Visit Provider Urology
DX: R10.9 Unspecified abdominal pain (principal); N20.0 Calculus of kidney
CPT/HCPCS: 99213

== ENCOUNTER → 2023-08-14 13:31 | Outpatient (BNVA) | payer MEDICARE, OTHER, SELFPAY | PROVIDERS: Visit Provider Urology | DX: N20.0 Calculus of kidney (principal); R10.9 Unspecified abdominal pain | CPT/HCPCS: 99212 ==

== ENCOUNTER 2024-10-06 14:59 | Outpatient (REF) | payer MEDICARE, OTHER, SELFPAY ==
--- NOTE | ~2024-10-06 | US_ITS ---
EXAMINATION: Ultrasound renal bilaterally. CLINICAL INFORMATION: Calculus of the kidney. COMPARISON: July 16, 2023. TECHNIQUE: Real-time ultrasound of the kidneys using grayscale technique. FINDINGS: RIGHT KIDNEY: 12 x 4 x 6 cm. Volume: 140 cc. Normal echotexture. Normal renal cortical thickness. No hydronephrosis. No solid or cystic lesion. Normal flow on color Doppler interrogation of the renal hilum. LEFT KIDNEY: 11 x 5 x 5 cm. Volume: 145 cc. Normal echotexture. Normal renal cortical thickness. No hydronephrosis. There are a few, less than 3 mm hyperechoic lesions in the lower pole. There is normal flow on color Doppler interrogation of the renal hilum. US/US renal BI IMPRESSION: Nonobstructing nephrolithiasis, left kidney. Electronically signed by: Sam Ann MD 10/06/2024 03:31 PM EDT
== END 2024-10-06 15:00 | disposition home or self-care (01) ==
LOC: HO.HMGCX 14:59
PROVIDERS: PCP Internal Medicine; Visit Provider Urology
DX: N20.0 Calculus of kidney (principal)
CPT/HCPCS: 76775

== ENCOUNTER → 2024-10-06 15:01 | Outpatient (BNV) | payer MEDICARE, OTHER, SELFPAY | PROVIDERS: PCP Internal Medicine; Visit Provider Radiology Diagnostic Radiology | DX: N20.0 Calculus of kidney (principal) | CPT/HCPCS: 76775 ==

== ENCOUNTER 2024-10-28 15:08 | Outpatient (AMB) | payer MEDICARE, OTHER, SELFPAY ==
--- NOTE | 2024-10-28 15:10 | A.OFFVIS_ITS ---
Intake Visit Reasons: 1yr/US Intake Note: Patient presents today for a 1Y follow-up US Meds- VITAMIN B6 Allergies to Antibiotic- No Known Allergies Blood Thinner- None Transmission And Coordination Engineer Required: No Accompanied by: Self / Same As Patient Allergies No Known Allergies Allergy (Verified 10/28/24 15:11) HPI Comments Details: Vicki is a pleasant female. She is a patient of Dr. Stringer. She is seen for following urologic conditions. - nephrolithiasis Yearly follow-up Discussed maintaining hydration and lemon therapy Ultrasound shows small stones left less than 3 mm Recommended vitamin B6 50 mg daily Urinary Symptoms Review - Presence of nephrolithiasis with stones measuring less than 3 mm in the lower pole, reduced in size from the previous year. - Patient complies with increased fluid intake as advised to manage nephrolithiasis. - Reports no issues with urination frequency, incontinence, or nocturnal symptoms associated with nephrolithiasis. Also uses pessary for prolapse Nephrolithiasis Ureteroscopy with laser lithotripsy required Stone intervention - 03/21 ureteroscopy stone basketing Stone composition - of performed Imaging - 03/21 4 mm proximal left ureteric stone - 05/21 renal ultrasound no evidence of stones - 11/20 renal ultrasound 3 mm left - 06/23 KUB no visible stone - 07/25 renal ultrasound 3 mm stone left - 10/23 renal ultrasound small stone left side [facility] Medical History Asthma Sleep apnea with use of continuous positive airway pressure (CPAP) No known health problems Surgical History History of surgery on arm History of colonoscopy History of tonsillectomy Social History Are you a primary wound care center consultant to a significant other at home: No Do you presently have visiting nurse or other home services: No Alcohol intake: never Patient Tobacco Use Status: Never used Tobacco Review of Systems Const Denies chills and Denies fever(s) Card Reports no additional complaints and Denies syncope Resp Denies cough GI Denies abdominal pain and Denies heartburn Reports as per HPI and Denies change in libido Neuro Denies syncope Psych Denies change in libido Endo Denies change in libido Physical Exam Const General: cooperative, healthy appearing, comfortable and no acute distress Orientation/consciousness: patient oriented x3 HEENT Face and sinus: Yes normal facial exam Mouth: moist mucous membranes Neck Neck: Yes normal visual inspection, Yes full ROM and Yes trachea midline Chest Chest palpation & inspection: normal inspection of the chest Resp Effort & Inspection: normal respiratory effort, able to speak in complete sentences and no respiratory distress GI Inspection: Yes normal to inspection Back/Spine/Pelvis Cervical Spine: normal cervical lordosis Thoracic/Lumbar Spine: thoracic and lumbar spine normal to inspection Skin General skin exam: no rashes or lesions noted Neuro General: patient oriented x3, gait normal, tone normal and moves all extremities Extrem General: Yes normal to inspection and Yes capillary refill normal Assessment & Plan Assessment & Plan (1) Calculus of kidney: Code(s): N20.0 - Calculus of kidney Category: Medical Plan Plan 1. Nephrolithiasis Stone size reduced. Continue vitamin B6. Maintain fluid intake. Monitor yearly. 2. Uterine Prolapse Manage with pessary. Cycle 5 days in/out. Routine check-up every 6 months to prevent ulcers. Discussion Notes During the visit, I reviewed the patient's ultrasound, revealing a reduction in the size of renal stones, which are now under 3 mm, indicating improvement. I advised the patient to continue with vitamin B6 and maintain high fluid intake to further reduce stone development. We discussed following up in one year for another ultrasound. Regarding her uterine prolapse, we confirmed that a pessary remains effective with her method of alternating use to prevent ulceration. I recommended that she continue her current regimen, with routine check-ups every six months for pessary management. The patient confirmed understanding and agreement with the plan. Patient Instructions - Keep up with vitamin B6 intake. - Continue high fluid consumption. - Monitor symptoms and notify any changes. - Maintain current pessary use regime ? 5 days in, 5 days out. - Schedule regular pessary check-ups every 6 months. - Return for an ultrasound in one year to reassess kidney stones. Orders: Orders US renal BI 12 Months N20.0 - Calculus of kidney Patient Instructions: This note is constructed using voice recognition software. While every effort has been made to ensure accuracy collections representative errors may have been included. Imaging studies, laboratory and physical exam results were discussed and reviewed in detail. No major barriers to patient understanding were identified. An opportunity to ask questions regarding the treatment plan was provided. All questions were answered. The patient expressed understanding and agreement with the above treatment plan. The patient is aware they should contact our office by phone for worsening of their current condition or the appearance of new urologic symptoms. Compliance is encouraged with any medications and followup testing that is ordered. It is a privilege to participate in the urologic care of your patient. If you have any questions or concerns regarding treatment for the above conditions, or other urologic issues, please do not hesitate to contact me. The office telephone contact is [phone]. Sincerely, Dr Vaughn Linton MD, [facility] - Urology Compassionate Specialist Care for the Genitourinary System Coding Level of Care Code Est Pt Level 4 (08762) Diagnoses Calculus of kidney N20.0
== END 2024-10-28 15:43 | disposition home or self-care (01) ==
LOC: HO.HUSH 15:09
PROVIDERS: PCP Internal Medicine; Visit Provider Urology
DX: N20.0 Calculus of kidney (principal)
CPT/HCPCS: 99214

== ENCOUNTER → 2024-10-28 15:08 | Outpatient (BNVA) | payer MEDICARE, OTHER, SELFPAY | PROVIDERS: PCP Internal Medicine; Visit Provider Urology | DX: N20.0 Calculus of kidney (principal) | CPT/HCPCS: 99212 ==